=== PATIENT | female | born 1995 | race Caucasian/White ===

== ENCOUNTER 2017-09-29 11:58 | Emergency (ER) | payer MEDICAID ==
[~2017-09-29] VITALS: Ht 180.3 cm; Wt 66.2 kg
[~2017-09-29 11:58] MED LIST: AMOXICILLIN 50500 M1 PO; AMOXICILLIN 50500 MG PO; AMOXICILLIN500 M1 PO; GENTAMICIN SU3 MG/ML OPHTHALMIC; HYDROCODON-ACE1 EAC7 PO; HYDROCODONE-AP1 EAC6 PO; IBUPROFEN 400400 M2 PO; IBUPROFEN 600600 M1 PO; KEFLEX500 MG PO; NOHOMEMEDICATIONS; PRENATAL; PROAIR HFA8.5 GM; PROMETHAZINE-D120 ML PO; SERTRALINE HCL50 MG PO; SINGULAIR 10 MG10 M1 PO; TRILEPTAL300 MG PO; TRINATE TABLET1 TAB; ZPAK PO; ZYRTEC10 M2 PO
[2017-09-29 12:30] LABS: URINE BILIRUBIN NEGATIVE (Negative); URINE BLOOD NEGATIVE (Negative); URINE CLARITY SL CLOUDY; URINE COLOR YELLOW; URINE GLUCOSE-RANDOM NEGATIVE (Negative); URINE KETONES TRACE (Negative); URINE NITRITE-REFLEX NEGATIVE (Negative); URINE PROTEIN TRACE (Negative); URINE SPECIFIC GRAVITY 1.015 (1.005-1.030)
[2017-09-29 12:31] LABS: URINE LEUKOCYTES-REFLEX 3+ (Negative)
[2017-09-29 12:35] LABS: SQUAMOUS >10 Many /LPF (0-3)
[2017-09-29 12:36] LABS: URINE RBC None Seen /HPF (0-2); URINE WBC-REFLEX >25 Many /HPF (0-5)
[2017-09-29 12:37] LABS: CASTS None Seen /LPF (None Seen); CRYSTALS None Seen /LPF (None Seen)
[2017-09-29 12:49] LABS: INFLUENZA A ANTIGEN None Detected (None Detect); INFLUENZA B ANTIGEN None Detected (None Detect)
[2017-09-29] MEDS ORDERED: KEFLEX500 M1 PO (13:18)
[2017-09-29 13:33] VITALS: BP 105/54
== END 2017-09-29 13:34 | disposition home or self-care (01) ==
LOC: M.ERS 11:58
PROVIDERS: Physician Assistant
DX: N39.0 Urinary tract infection, site not specified (principal); J00 Acute nasopharyngitis [common cold]; Z88.8 Allergy status to other drugs, medicaments and biological substances

== ENCOUNTER 2018-08-14 22:17 | Emergency (ER) | payer OTHER ==
[~2018-08-14] VITALS: Ht 149.9 cm; Wt 56.7 kg
[~2018-08-14 22:17] MED LIST changes: +KEFLEX500 M1 PO
[2018-08-14] MEDS ORDERED: AMOXICILLIN 50500 MG PO (22:42)
[2018-08-14 22:49] VITALS: BP 122/66
== END 2018-08-14 22:50 | disposition home or self-care (01) ==
LOC: M.ERS 22:17
DX: J06.9 Acute upper respiratory infection, unspecified (principal)

== ENCOUNTER 2018-08-23 01:17 | Emergency (ER) | payer OTHER ==
[~2018-08-23] VITALS: Ht 149.9 cm; Wt 55.3 kg
[2018-08-23 01:22] VITALS: BP 128/75
[2018-08-23] MEDS ORDERED: PENICILLIN VK500 M1 PO (01:31)
[2018-08-23] MEDS ORDERED: ACETAMINOPHEN-1 EAC1 PO (01:31)
== END 2018-08-23 01:38 | disposition home or self-care (01) ==
LOC: M.ERS 01:17
DX: K08.89 Other specified disorders of teeth and supporting structures (principal); Z85.07 Personal history of malignant neoplasm of pancreas; Z88.8 Allergy status to other drugs, medicaments and biological substances

== ENCOUNTER 2019-01-18 08:38 | Emergency (ER) | payer OTHER, MEDICAID ==
[~2019-01-18] VITALS: Ht 149.9 cm; Wt 55.3 kg
[~2019-01-18 08:38] MED LIST changes: +ACETAMINOPHEN-1 EAC1 PO; +PENICILLIN VK500 M1 PO
[2019-01-18 08:45] VITALS: BP 116/78
[2019-01-18] MEDS ORDERED: TRAMADOL 50 MG50 MG PO (08:47)
[2019-01-18 08:52] LABS: URINE BILIRUBIN NEGATIVE (Negative); URINE BLOOD NEGATIVE (Negative); URINE CLARITY CLEAR; URINE COLOR YELLOW; URINE GLUCOSE-RANDOM NEGATIVE (Negative); URINE KETONES NEGATIVE (Negative); URINE LEUKOCYTES-REFLEX NEGATIVE (Negative); URINE NITRITE-REFLEX NEGATIVE (Negative); URINE PROTEIN NEGATIVE (Negative); URINE SPECIFIC GRAVITY 1.025 (1.005-1.030); URINE UROBILINOGEN 0.2 E.U./dl (0.2-1.0)
[2019-01-18] MEDS ORDERED: NORCO 5-325 TA1 EACH PO (09:03)
[2019-01-18] MEDS ORDERED: FLEXERIL PO (09:03)
== END 2019-01-18 09:10 | disposition home or self-care (01) ==
LOC: M.ERS 08:38
PROVIDERS: Family Medicine
DX: S39.012A Strain of muscle, fascia and tendon of lower back, initial encounter (principal); Z88.4 Allergy status to anesthetic agent; Z91.048 Other nonmedicinal substance allergy status; F42.9 Obsessive-compulsive disorder, unspecified; F90.9 Attention-deficit hyperactivity disorder, unspecified type; Z90.89 Acquired absence of other organs; X50.1XXA Overexertion from prolonged static or awkward postures, initial encounter; Y92.89 Other specified places as the place of occurrence of the external cause; Y93.89 Activity, other specified; Y99.8 Other external cause status

== ENCOUNTER 2019-04-03 15:12 | Emergency (ER) | payer OTHER, MEDICAID ==
[~2019-04-03] VITALS: Ht 149.9 cm; Wt 56.7 kg
[~2019-04-03 15:12] MED LIST changes: +FLEXERIL PO; +NORCO 5-325 TA1 EACH PO; +TRAMADOL 50 MG50 MG PO
[2019-04-03 15:49] VITALS: BP 121/73
== END 2019-04-03 15:54 | disposition home or self-care (01) ==
LOC: M.ERS 15:12
DX: T23.111A Burn of first degree of right thumb (nail), initial encounter (principal); F42.9 Obsessive-compulsive disorder, unspecified; F90.9 Attention-deficit hyperactivity disorder, unspecified type; Z90.89 Acquired absence of other organs; Z91.048 Other nonmedicinal substance allergy status; Z88.4 Allergy status to anesthetic agent; W90.8XXA Exposure to other nonionizing radiation, initial encounter; Y92.89 Other specified places as the place of occurrence of the external cause; Y93.89 Activity, other specified; Y99.8 Other external cause status

== ENCOUNTER 2019-04-22 10:28 | Emergency (ER) | payer OTHER, MEDICAID ==
[~2019-04-22] VITALS: Ht 149.9 cm; Wt 54.4 kg
[2019-04-22 11:17] LABS: ABSOLUTE BASOPHILS 0.1 thou/uL (0.0-0.2); ABSOLUTE EOSINOPHILS 0.1 thou/uL (0.0-0.7); ABSOLUTE LYMPHOCYTES 1.5 thou/uL (0.8-5.3); ABSOLUTE MONOCYTES 0.5 thou/uL (0.0-1.2); ABSOLUTE NEUTROPHILS 3.5 thou/uL (1.6-8.1); BASOPHILS 1.1 %; HEMATOCRIT 39.5 % (37.0-47.0); HEMOGLOBIN 12.9 gm/dL (12.0-15.0); LYMPHOCYTES 26.3 %; MCH 27.8 pg (26.0-34.0); MCHC 32.7 g/dL (28.0-37.0); MCV 84.8 fL (80.0-100.0); MONOCYTES 8.7 %; MPV 8.7 fl. (7.2-11.1); NUCLEATED RBCS 0 /100WBC; PLATELET COUNT* 266 thou/uL (150-400); POLYS 61.9 %; RBC 4.65 mil/uL (4.20-5.00); RDW-CV 15.8 % (10.5-14.5); WBC 5.6 thou/uL (4.0-11.0)
[2019-04-22 11:20] LABS: ANION GAP 5 mmol/L (7-16); BUN 14 mg/dL (7-18); CALCIUM 8.9 mg/dL (8.5-10.1); CHLORIDE 105 mmol/L (98-107); CO2 30 mmol/L (21-32); CREATININE 0.8 mg/dL (0.6-1.3); GLUCOSE 88 mg/dL (70-99); POTASSIUM 4.4 mmol/L (3.5-5.1); SODIUM 140 mmol/L (136-145)
[2019-04-22 11:30] LABS: ALBUMIN 3.9 g/dL (3.4-5.0); ALKALINE PHOSPHATASE 74 U/L (46-116); SGOT 11 U/L (15-37); SGPT 17 U/L (30-65); TOTAL BILIRUBIN 0.3 mg/dL (<0.1-1.0); TOTAL PROTEIN 7.4 g/dL (6.4-8.2); TROPONIN-I LEVEL <0.06 ng/mL (<0.06)
[2019-04-22 12:12] LABS: URINE BILIRUBIN NEGATIVE (Negative); URINE BLOOD NEGATIVE (Negative); URINE CLARITY CLEAR; URINE COLOR YELLOW; URINE GLUCOSE-RANDOM NEGATIVE (Negative); URINE KETONES NEGATIVE (Negative); URINE LEUKOCYTES-REFLEX NEGATIVE (Negative); URINE NITRITE-REFLEX NEGATIVE (Negative); URINE PROTEIN NEGATIVE (Negative); URINE SPECIFIC GRAVITY 1.025 (1.005-1.030); URINE UROBILINOGEN 0.2 E.U./dl (0.2-1.0)
[2019-04-22 12:19] LABS: AMP/METHAMP Negative (Negative); BARBITURATES Negative (Negative); BENZODIAZEPINES Negative (Negative); COCAINE Negative (Negative); METHADONE Negative (Negative); OPIATES Negative (Negative); PCP Negative (Negative); THC Negative (Negative)
[2019-04-22 13:28] VITALS: BP 103/67
--- NOTE | 2019-04-24 14:44 | EKG ---
[place] [address] ELECTROCARDIOGRAM REPORT Name: SERGIOLEONLINDA [id number] Admission: 04/22/19 Attend Phys: Discharge: 04/22/19 Date of : [birth year] Report #: [id number] THIS REPORT FOR: //name// [facility] ED Test Date: 2019-04-22 Test Time: 10:37:02 Pat Name: LINDA SAWYER Department: Room: Gender: F Gi Tech: [facility] : 1995 Requested By: Perry Yousif Order Number: [id number] MD: Daniel Velasco Measurements Intervals Orestes Rate: 80 P: 39 DC: 138 QRS: 61 QRSD: 87 T: 57 QT: 359 QTc: 415 Interpretive Statements Sinus rhythm No previous ECG available for comparison Electronically Signed On 04-24-2019 14:44:03 CDT by Daniel Velasco [email or web address] <ELECTRONICALLY SIGNED> By: Daniel Velasco MD, [facility] 04/24/19 1444 1037 [facility] Daniel Velasco MD, FACC /EPI
== END 2019-04-22 13:30 | disposition home or self-care (01) ==
LOC: M.ERS 10:28
PROVIDERS: Emergency Medicine Emergency Medical Services
DX: R56.9 Unspecified convulsions (principal); Z88.8 Allergy status to other drugs, medicaments and biological substances; F90.9 Attention-deficit hyperactivity disorder, unspecified type

== ENCOUNTER 2019-06-06 01:29 | Emergency (ER) | payer OTHER, MEDICAID ==
[~2019-06-06] VITALS: Ht 149.9 cm; Wt 52.2 kg
[2019-06-06 01:57] LABS: URINE BILIRUBIN NEGATIVE (Negative); URINE BLOOD 1+ (Negative); URINE CLARITY SL CLOUDY; URINE COLOR YELLOW; URINE GLUCOSE-RANDOM NEGATIVE (Negative); URINE KETONES NEGATIVE (Negative); URINE LEUKOCYTES-REFLEX 1+ (Negative); URINE NITRITE-REFLEX POSITIVE (Negative); URINE PROTEIN 2+ (Negative)
[2019-06-06 02:04] LABS: ABSOLUTE BASOPHILS 0.1 thou/uL (0.0-0.2); ABSOLUTE EOSINOPHILS 0.2 thou/uL (0.0-0.7); ABSOLUTE LYMPHOCYTES 2.8 thou/uL (0.8-5.3); ABSOLUTE MONOCYTES 0.5 thou/uL (0.0-1.2); ABSOLUTE NEUTROPHILS 4.5 thou/uL (1.6-8.1); HEMATOCRIT 36.1 % (37.0-47.0); HEMOGLOBIN 12.2 gm/dL (12.0-15.0); LYMPHOCYTES 34.6 %; MCH 28.3 pg (26.0-34.0); MCHC 33.9 g/dL (28.0-37.0); MCV 83.3 fL (80.0-100.0); MONOCYTES 6.8 %; MPV 8.5 fl. (7.2-11.1); NUCLEATED RBCS 0 /100WBC; PLATELET COUNT* 296 thou/uL (150-400); POLYS 55.6 %; RBC 4.33 mil/uL (4.20-5.00); RDW-CV 14.4 % (10.5-14.5)
[2019-06-06 02:12] LABS: CALCIUM 8.7 mg/dL (8.5-10.1); CREATININE 0.8 mg/dL (0.6-1.3); POTASSIUM 3.6 mmol/L (3.5-5.1)
[2019-06-06 02:17] LABS: ALBUMIN 3.6 g/dL (3.4-5.0); TOTAL BILIRUBIN 0.1 mg/dL (<0.1-1.0); TOTAL PROTEIN 7.3 g/dL (6.4-8.2)
[2019-06-06 02:28] LABS: CASTS None Seen /LPF (None Seen); SQUAMOUS 4-10 Moderate /LPF (0-3); URINE WBC-REFLEX >25 Many /HPF (0-5)
[2019-06-06 02:29] LABS: BACTERIA-REFLEX >30 Many /HPF (None Seen); CRYSTALS None Seen /LPF (None Seen); URINE RBC 3-10 Few /HPF (0-2)
[2019-06-06] MEDS ORDERED: MACROBID 100 M100 M1 PO (04:22)
[2019-06-06 04:37] VITALS: BP 100/57
== END 2019-06-06 04:37 | disposition home or self-care (01) ==
LOC: M.ERS 01:29
PROVIDERS: Family Medicine
DX: K80.50 Calculus of bile duct without cholangitis or cholecystitis without obstruction (principal); N39.0 Urinary tract infection, site not specified; R11.2 Nausea with vomiting, unspecified; F90.9 Attention-deficit hyperactivity disorder, unspecified type; Z88.4 Allergy status to anesthetic agent; Z91.041 Radiographic dye allergy status; Z90.89 Acquired absence of other organs

== ENCOUNTER 2019-09-12 20:03 | Emergency (ER) | payer MEDICAID ==
[~2019-09-12] VITALS: Ht 149.9 cm; Wt 56.7 kg
[~2019-09-12 20:03] MED LIST changes: +MACROBID 100 M100 M1 PO
[2019-09-12 20:28] LABS: URINE BILIRUBIN NEGATIVE (Negative); URINE BLOOD NEGATIVE (Negative); URINE CLARITY CLEAR; URINE COLOR YELLOW; URINE GLUCOSE-RANDOM NEGATIVE (Negative); URINE KETONES 3+ (Negative); URINE LEUKOCYTES-REFLEX TRACE (Negative); URINE NITRITE-REFLEX NEGATIVE (Negative); URINE PROTEIN NEGATIVE (Negative); URINE SPECIFIC GRAVITY <= 1.005 (1.005-1.030)
[2019-09-12 20:32] LABS: SQUAMOUS >10 Many /LPF (0-3)
[2019-09-12 20:33] LABS: URINE WBC-REFLEX 0-5 Rare /HPF (0-5)
[2019-09-12 20:34] LABS: CASTS None Seen /LPF (None Seen); CRYSTALS None Seen /LPF (None Seen); MUCUS 0-3 Light strn/LPF (None Seen); URINE RBC None Seen /HPF (0-2)
[2019-09-12 21:14] VITALS: BP 135/77
== END 2019-09-12 21:15 | disposition home or self-care (01) ==
LOC: M.ERS 20:03
PROVIDERS: Family Medicine
DX: O21.8 Other vomiting complicating pregnancy (principal); Z3A.14 14 weeks gestation of pregnancy